=== PATIENT | male | born 1955 | race Caucasian/White ===

== ENCOUNTER 2021-10-19 11:48 | Emergency (ER) | payer BC ==
[2021-10-19] MEDS ORDERED: Sodium Chloride 0.9% 10 ML Syringe FLUSH PRN (11:57)
[2021-10-19] MEDS ORDERED: Sodium Chloride 0.9% 1,000 ML IV SCH (12:00)
[2021-10-19] MEDS ORDERED: Lactated Ringers 1,000 ML IV ONE ×2 (13:34→15:11)
[2021-10-19] MEDS ORDERED: cefTRIAXone 2 GM in Sodium Chloride 0.9% 100 ML IV ONE (14:39)
== END 2021-10-19 16:51 ==
LOC: JD.ED 11:48
DX: A41.89 Other specified sepsis (principal); U07.1 COVID-19; J12.82 Pneumonia due to coronavirus disease 2019; N17.9 Acute kidney failure, unspecified; I95.9 Hypotension, unspecified; R41.82 Altered mental status, unspecified; I10 Essential (primary) hypertension; I25.10 Atherosclerotic heart disease of native coronary artery without angina pectoris
CPT/HCPCS: 36415; 36600; 71045; 80053; 82728; 82803; 83605; 83735; 83880; 84484; 85007; 85027; 85379; 85610; 86140; 87040; 87635; 93005; 96365; 99285; J0696; J7030; J7120; 93010; U0002